=== PATIENT | female | born 1980 | race Caucasian/White ===

== ENCOUNTER → 2021-07-07 08:48 | Outpatient (BNVA) | payer MEDICARE, MEDICAID, SELFPAY | PROVIDERS: PCP Nurse Practitioner Family; Visit Provider Nurse Practitioner Family | DX: M79.7 Fibromyalgia (principal); G89.29 Other chronic pain; K91.2 Postsurgical malabsorption, not elsewhere classified; F43.10 Post-traumatic stress disorder, unspecified | CPT/HCPCS: 99202 ==